=== PATIENT | female | born 1960 | race Caucasian/White ===

== ENCOUNTER 2022-03-19 06:41 | Day surgery (SDC) | payer MEDICAID ==
[~2022-03-19] VITALS: Ht 149.9 cm; Wt 72.6 kg
[2022-03-19] MEDS ORDERED: MEPERIDINE 100 MG INJ. 100 MG/ML VIAL ONE (07:20)
[2022-03-19] MEDS ORDERED: SIMETHICONE 40 MG/0.6 ML ML ONE (07:20)
[2022-03-19] MEDS: MIDAZOLAM HCL 5 MG/5 ML VIAL ONE ×4 (09:42→09:50)
[2022-03-19 14:36] VITALS: BP_SYST 119
== END 2022-03-19 11:25 | disposition home or self-care (01) ==
LOC: SDS 06:41 → SMU 06:42 → SDS 11:25
PROVIDERS: ATTEND Internal Medicine Gastroenterology
DX: Z12.11 Encounter for screening for malignant neoplasm of colon (principal); K64.8 Other hemorrhoids; K57.30 Diverticulosis of large intestine without perforation or abscess without bleeding; Z86.010 Personal history of colon polyps; Z79.899 Other long term (current) drug therapy; Z20.822 Contact with and (suspected) exposure to COVID-19
CPT/HCPCS: 36415 ×2; 45378; 87426; 87635; 99152; G0378; J2175; J2250; U0003